=== PATIENT | male | born 1955 | race Caucasian/White ===

== ENCOUNTER 2023-12-30 17:50 | Emergency (ER) | payer OTHER ==
[~2023-12-30] VITALS: Ht 182.8 cm; Wt 104.3 kg
[~2023-12-30 17:50] MED LIST: CARAFATE1 G1 PO; CHILDREN'S CHEW81 MG PO; GLIPIZIDE10 M2 PO; HYDR25T PO; Levoxyl0.137 MG PO; MELOXICAM15 MG PO; METFORMIN500 MG PO; METOPROLOL SR50 MG PO; MEVACOR20 MG PO; PROTONIX40 MG PO
[2023-12-30] MEDS ORDERED: METFORMIN HYDR500 MG PO (18:03)
[2023-12-30] MEDS ORDERED: LOPRESSOR25 MG PO (18:04)
[2023-12-30] MEDS ORDERED: IOHEXOL 300 MG/ML 100 ML VIAL IV ONE (18:30)
[2023-12-30] MEDS ORDERED: SODIUM CHLORIDE 0.9% 1,000 ML IV ONE (18:30)
[2023-12-30 18:51] LABS: HEMATOCRIT 43.4 % (42.0-52.0); MEAN CELL VOLUME 78.9 fl (80.0-94.0); MEAN CORPUSCULAR HGB 25.1 pg (27.0-31.0); MEAN CORPUSCULAR HGB CONC 31.8 g/dl (33.0-37.0); MEAN PLATELET VOLUME 10.7 fl (9.6-12.3); PLATELET COUNT AUTOMATED 309 10*3/uL (130-400); RED CELL DISTRI WIDTH 17.9 % (0-14.5); WHITE BLOOD COUNT 15.6 10*3/uL (4.8-10.8)
[2023-12-30 19:00] LABS: MANUAL DIFF REFLEX YES
[2023-12-30 19:02] LABS: BILIRUBIN Negative (Negative); BLOOD 1+ (Negative); CLARITY Clear (Clear); COLOR Yellow (Yellow); GLUCOSE 1+ (Negative); KETONE Trace (Negative); LEUKO ESTERASE Negative (Negative); NITRITE Negative (Negative); SPECIFIC GRAVITY 1.025 (1.001-1.030)
[2023-12-30 19:09] LABS: ACT PARTIAL THROMBO TIME 25.8 SECONDS (20.0-32.1)
[2023-12-30 19:17] LABS: BACTERIA 1+; MUCOUS TRACE
[2023-12-30 19:20] LABS: ALKALINE PHOSPHATASE 63 U/L (46-116); BUN 14 mg/dl (9-23); CHLORIDE 100 mmol/L (98-107); LIPASE 43 U/L (12-53); POTASSIUM 3.7 mmol/L (3.4-5.1); SGPT/ALT 12 U/L (5-49); TOTAL PROTEIN 7.7 gm/dL (6.0-8.0)
[2023-12-30 19:25] LABS: BASOPHILS 2 % (0-1); PLATELET SUFFICIENCY NORMAL (NORMAL); TOTAL CELLS COUNTED 100 #CELLS
[2023-12-30 19:26] LABS: BURR CELLS MODERATE; OVALOCYTES FEW
[2023-12-30] MEDS ORDERED: METRONIDAZOLE 100 ML IV ONE (21:30)
[2023-12-30] MEDS ORDERED: Pantoprazole Sodium 40 MG VIAL IV ONE (21:30)
[2023-12-30] MEDS ORDERED: CIPROFLOXACIN 200 ML IV ONE (21:30)
[2023-12-30] MEDS ORDERED: SODIUM CHLORIDE 0.9% 1,000 ML IV SCH (21:30)
== END 2023-12-31 07:41 | disposition short-term general hospital (02) ==
LOC: ED 17:50
PROVIDERS: Internal Medicine
DX: K26.9 Duodenal ulcer, unspecified as acute or chronic, without hemorrhage or perforation (principal); E83.42 Hypomagnesemia; R65.20 Severe sepsis without septic shock; D50.9 Iron deficiency anemia, unspecified; I10 Essential (primary) hypertension; E11.9 Type 2 diabetes mellitus without complications; E78.00 Pure hypercholesterolemia, unspecified; Z90.89 Acquired absence of other organs